=== PATIENT | female | born 1970 | race Caucasian/White ===

== ENCOUNTER 2017-09-06 06:56 | Day surgery (SDC) | payer OTHER ==
[~2017-09-06] VITALS: Ht 165.1 cm; Wt 104.3 kg
[~2017-09-06 06:56] MED LIST: CRESTOR10 MG PO; JUNEL1 EACH PO; LIORESAL10 MG PO; NEURONTIN100 MG PO; TOPAMAX100 MG PO; XANAX0.5 MG PO; ZITHROMAX Z-PA250 MG PO; ZOLOFT50 MG PO
[2017-09-06 07:39] LABS: BASOPHIL COUNT 0.1 K/uL (0-0.1); EOSINOPHIL (%) 2.4 % (0-5); EOSINOPHIL COUNT 0.2 K/uL (0-0.3); HEMATOCRIT 37.9 % (36.0-46.0); IMMATURE GRANULOCYTE (%) 0.1 % (0.0-0.7); INSTRUMENT ABS NEUTROPHIL CT 4.2 K/uL; LYMPHOCYTE COUNT 2.2 K/uL (1.0-2.8); MCH 30.2 PG (29.0-34.0); MCHC 35.1 G/DL (30.0-36.0); MCV 85.9 FL (83-99); MEAN PLAT.VOLUME 9.9 uM^3 (9.5-12.4); MONOCYTE (%) 6.1 % (3-12); MONOCYTE COUNT 0.4 K/uL (0-0.8); NEUTROPHIL (%) 59.6 % (45-76); NEUTROPHIL COUNT 4.2 K/uL (1.8-6.4); PLATELET COUNT 269 K/uL (156-360); RBC DIS.WIDTH-CV 12.1 % (11.8-14.6); RBC DIS.WIDTH-SD 38.5 % (39-53); RED BLOOD COUNT 4.41 M/uL (3.80-5.20); WHITE BLOOD COUNT 7.1 K/uL (4.1-10.2)
[2017-09-06 07:51] LABS: GLUCOSE 108 mg/dL (70-99)
[2017-09-06 07:53] LABS: ANION GAP 11 MEQ/L (2-14); CHLORIDE 101 mEq/L (99-109); POTASSIUM 3.4 mEq/L (3.7-5.4); SODIUM 136 mEq/L (136-147)
[2017-09-06 07:55] LABS: GFR ESTIMATE (CALCULATED) > 59 mL/min/
[2017-09-06 07:56] LABS: UREA NITROGEN (BUN) 14 mg/dL (9-23)
[2017-09-06 07:59] VITALS: BP 175/79
[2017-09-06 08:03] LABS: QUANTITATIVE HCG < 4.0 MIU/ML
[2017-09-06 16:03] VITALS: BP 140/74
[2017-09-06 19:26] VITALS: BP 125/61
[2017-09-06 23:14] VITALS: BP 117/54
[2017-09-07 03:23] VITALS: BP 117/60
[2017-09-07 07:22] VITALS: BP 141/69
[2017-09-07 07:32] LABS: HEMATOCRIT 30.7 % (36.0-46.0); MCH 30.6 PG (29.0-34.0); MCHC 33.9 G/DL (30.0-36.0); MEAN PLAT.VOLUME 9.9 uM^3 (9.5-12.4); PLATELET COUNT 238 K/uL (156-360); RBC DIS.WIDTH-CV 13.1 % (11.8-14.6); RBC DIS.WIDTH-SD 42.8 % (39-53); WHITE BLOOD COUNT 11.4 K/uL (4.1-10.2)
[2017-09-07 07:34] LABS: MCV 90.3 FL (83-99)
[2017-09-07 07:39] LABS: ANION GAP 7 MEQ/L (2-14); CHLORIDE 106 MEQ/L (99-109); GFR ESTIMATE (CALCULATED) > 59 mL/min/; GLUCOSE 122 mg/dL (70-99); SAMPLE HEMOLYSIS CHECK 0; SAMPLE ICTERIC CHECK 0; SAMPLE LIPEMIA CHECK 0; SODIUM 139 MEQ/L (136-147); UREA NITROGEN (BUN) 9 mg/dL (9-23)
[2017-09-07 07:53] LABS: POTASSIUM 4.4 MEQ/L (3.7-5.4)
[2017-09-07] MEDS ORDERED: CLOTRIMAZOLE15 GM TP (10:48)
[2017-09-07] MEDS ORDERED: IBUPROFEN400 MG PO (10:48)
[2017-09-07] MEDS ORDERED: HYDROCODON-ACE1 EAC7 PO (10:48)
[2017-09-07 11:43] VITALS: BP 108/54
== END 2017-09-07 14:10 | disposition home or self-care (01) ==
LOC: SDC 06:56 → 2EAST 14:27 → 2SOUTH 14:27 → ENRESERV 14:28 → 2SOUTH 14:42 → EDSTATUS 14:42 → SDC 14:43 → ENRESERV 14:56 → 2EAST 15:55
PROVIDERS: Obstetrics & Gynecology
DX: D25.9 Leiomyoma of uterus, unspecified (principal); Q51.9 Congenital malformation of uterus and cervix, unspecified; N92.0 Excessive and frequent menstruation with regular cycle; F41.8 Other specified anxiety disorders; E78.5 Hyperlipidemia, unspecified; E66.9 Obesity, unspecified; Z68.41 Body mass index [BMI] 40.0-44.9, adult; E55.9 Vitamin D deficiency, unspecified; Z88.5 Allergy status to narcotic agent; Z80.49 Family history of malignant neoplasm of other genital organs
CPT/HCPCS: 80048; 84702; 85025; 85027; 86850; 86900; 86901; 88307; G0378; J0690; J1100; J1170; J1885; J2001; J2250; J2405; J2710; J2795; J3010; J3475; Q0175